=== PATIENT | male | born 1940 | race Caucasian/White ===

== ENCOUNTER 2018-05-06 13:24 | Outpatient (CLI) | payer MEDICARE, BC | END 2018-05-06 13:25 | disposition home or self-care (01) | LOC: ULT 13:24 | PROVIDERS: ATTEND Family Medicine | DX: M31.5 Giant cell arteritis with polymyalgia rheumatica (principal); I08.2 Rheumatic disorders of both aortic and tricuspid valves; R31.29 Other microscopic hematuria; Z79.52 Long term (current) use of systemic steroids | CPT/HCPCS: 81001; 87077; 87086; 87186; 93306 ==

== ENCOUNTER 2018-05-18 08:52 | Outpatient (CLI) | payer MEDICARE, BC ==
--- NOTE | 2018-05-18 12:07 | CT ---
CT ABDOMEN WITH AND WITHOUT CONTRAST CT PELVIS WITH AND WITHOUT CONTRAST: History: Hematuria. Comparison: 10-04-14 Technique: Abdomen and pelvic CT are performed with and without IV contrast. Enteric contrast was not administered. Coronal reformatted images are submitted for interpretation. FINDINGS: ABDOMEN CT: There are coronary calcifications. The heart size is within normal limits. Atherosclerosis of a non-a neurysmal aorta. Chronic changes in the lung bases. No suspicious masses or consolidation. Intra and extra hepatic portal vein is patent. Gallbladder is surgically absent. Liver, spleen, pancr eas, and adrenal glands have appropriate enhancement. Stable hypodensities involving the right renal cortex, too small to characterize but statistically fa vored approximately 1-2 mm in size. d to be cysts. There are bilateral nonobstructing calculi in the left and right intrarenal collecting system measuring 3.9 and 3.8 cm respectively. Additional small o r nonobstructing calculi are noted in the left internal collecting system of approximately 1-2 mm in size. Symmetric enhancement of the kidneys. No evidence of an enhancing mass. There is symmetric excr etion of the contrast into the intrarenal collecting system on the delayed images. The opacified exte rnal collecting systems have an appropriate appearance without a definite filling defect. No gastrohepatic, retrocrural or periportal lymphadenopathy. Evidence of previous abdominal surgery with ventral suture material. No mesenteric mass, lymphadenopathy, free air or free fluid. Limited evaluation of the alimentary canal by the lack of oral contrast. Gastric mucosa, duodenum and multiple normal caliber small bowel loops are noted. Ileocecal junction is normal. Appendix is diffi cult to appreciate. No inflammation of the cecal apex. Scattered fecal material in a nondistended, no ndilated colon. Colonic diverticulosis. No diverticulitis. Limited evaluation of the sigmoid colon mu cosa. Colonoscopy is recommended. PELVIC CT: No pelvic mass, lymphadenopathy, free air or free fluid. Unremarkable urinary bladder. There is a lonnie cification within the wall of the urinary bladder measuring 1-2 mm. No lytic or blastic lesions in the osseous structures. IMPRESSION: 1. No evidence of obstructive uropathy. 2. No evidence of abnormal enhancing mass. 3. Bilateral nonobstructing calculi. 4. Hypodensities in the right kidney are too small to characterize. Small cysts are statistically fav ored. These hypodensities are similar to the previous exam. 5. Diverticulosis without evidence of diverticulitis. 6. Nonspecific calcification in the anterior bladder wall, just to the left of midline. This calcific ation is similar to the exam from 10-19-14. POS: [facility]
[2018-05-18] MEDS ORDERED: ISOVUE-370 76%-LOCM 1 ML ONE (16:06)
== END 2018-05-18 08:53 | disposition home or self-care (01) ==
LOC: CT 08:52 → BICCT 08:53
PROVIDERS: ATTEND Urology
DX: R31.29 Other microscopic hematuria (principal); N28.1 Cyst of kidney, acquired; K57.30 Diverticulosis of large intestine without perforation or abscess without bleeding; N20.0 Calculus of kidney; R93.421 Abnormal radiologic findings on diagnostic imaging of right kidney; N32.89 Other specified disorders of bladder; Z87.440 Personal history of urinary (tract) infections; Z87.442 Personal history of urinary calculi
CPT/HCPCS: 74178

== ENCOUNTER 2019-05-09 10:59 | Outpatient (CLI) | payer MEDICARE, BC ==
--- NOTE | 2019-05-09 13:54 | CT ---
CT ABDOMEN AND PELVIS PERFORMED WITHOUT CONTRAST ENHANCEMENT: Date: 05/09/19 HISTORY: History of kidney stones, having pain and hematuria. Reoccurring UTIs. COMPARISON: 05/18/18 study. FINDINGS: Lung bases show COPD type change. The liver, spleen, and pancreas regions appear unremarkable. The gallbladder has been removed. Punctate bilateral nonobstructing renal calculi are seen. I do not see any signs of any ureteral calc ulus. There is no significant periaortic or mesenteric adenopathy. CT of pelvis was performed with contrast enhancement. There is a moderate amount of stool seen within the sigmoid colon. There is also moderate sigmoid div erticulosis. No adenopathy or mass. There is mild bladder wall thickening demonstrate. A small calcif ication along the anterior bladder wall again noted. IMPRESSION: 1. Bilateral nonobstructing renal calculi. 2. Bladder wall thickening, probably on the basis of bladder outlet obstruction. 3. Sigmoid diverticulosis. POS: [facility]
== END 2019-05-09 11:00 | disposition home or self-care (01) ==
LOC: SCSCT 10:59
PROVIDERS: ATTEND Urology
DX: N20.0 Calculus of kidney (principal); K57.30 Diverticulosis of large intestine without perforation or abscess without bleeding; Z87.440 Personal history of urinary (tract) infections
CPT/HCPCS: 74176

== ENCOUNTER 2021-02-06 13:44 | Inpatient (IN) | payer MEDICARE, BC ==
[2021-02-06 15:18] LABS: #Eosinphils 0.1 thou/uL (0.0-0.7); #Lymphocytes 0.7 thou/uL (1.20-3.40); #Monocytes 0.5 thou/uL (0.11-0.59); #Neutrophils 14.6 thou/uL (1.40-6.50); %Basophils 0.2 % (0.0-1.0); %Eosinophils 0.4 % (0.0-10.0); %Lymphocytes 4.3 % (21.0-51.0); %Monocytes 2.9 % (0.0-10.0); %Neutrophils 92.2 % (42.0-75.0); Hemoglobin 13.5 g/dL (14.0-18.0); Mean Corpuscular HGB CONC 34.3 g/dL (32.0-36.0); Mean Corpuscular Hemoglobin 33.8 pg (27.0-31.0); Mean Corpuscular Volume 98.6 fL (78.0-98.0); Mean Platelet Volume 7.3 fL (7.4-10.4); Platelet Count 290 thou/uL (130-400); RBC Distribution Width 12.9 % (11.5-14.5); Red Blood Cell (RBC) Count 3.98 mill/uL (4.70-6.10); White Blood Cell (WBC) Count 15.8 thou/uL (4.8-10.8)
[2021-02-06 15:38] LABS: ALT (SGPT) 36 U/L (8-55); AST (SGOT) 20 U/L (5-34); Albumin 3.4 g/dL (3.4-4.8); Alkaline Phosphatase 77 U/L (40-110); Anion Gap 15 mmol/L (10-20); BUN (Urea Nitrogen) 42 mg/dL (8.4-25.7); Bilirubin, Total 0.7 mg/dL (0.2-1.2); CK (CPK) 30 U/L (30-200); Calc. Creatinine Clearance 0 mL/min (70-130); Calcium 8.7 mg/dL (7.8-10.44); Carbon Dioxide 24 mmol/L (23-31); Chloride 103 mmol/L (98-107); Globulin 2.3 g/dL (2.4-3.5); Glucose 137 mg/dL (83-110); Lipase 219 U/L (8-78); Protein, Total 5.7 g/dL (5.8-8.1); Sodium 138 mmol/L (136-145)
[2021-02-06] MEDS ORDERED: metroNIDAZOLE 250 MG TAB ONE (16:10)
[2021-02-06] MEDS ORDERED: Vancomycin HCl 25 MG/ML Oral PO SCH (16:45)
[2021-02-06] MEDS ORDERED: Communication Order-Pharmacy FS ONE (19:22)
[2021-02-06 20:27] VITALS: BMI 19.2
[2021-02-06] MEDS: Sodium Chloride 0.9% 1,000 ML IV SCH (22:26)
[2021-02-06] MEDS: Vancomycin HCl 25 MG/ML Oral PO SCH (23:34)
[2021-02-07] MEDS: Sodium Chloride 0.9% 1,000 ML IV SCH ×2 (03:57→15:43)
[2021-02-07 04:53] LABS: #Eosinphils 0.2 thou/uL (0.0-0.7); #Lymphocytes 1.4 thou/uL (1.20-3.40); #Monocytes 0.8 thou/uL (0.11-0.59); #Neutrophils 11.1 thou/uL (1.40-6.50); %Basophils 0.1 % (0.0-1.0); %Eosinophils 1.5 % (0.0-10.0); %Lymphocytes 10.7 % (21.0-51.0); %Monocytes 5.8 % (0.0-10.0); Hemoglobin 12.5 g/dL (14.0-18.0); Mean Corpuscular HGB CONC 35.1 g/dL (32.0-36.0); Mean Corpuscular Hemoglobin 34.9 pg (27.0-31.0); Mean Corpuscular Volume 99.4 fL (78.0-98.0); Mean Platelet Volume 7.4 fL (7.4-10.4); Platelet Count 284 thou/uL (130-400); RBC Distribution Width 12.9 % (11.5-14.5); Red Blood Cell (RBC) Count 3.57 mill/uL (4.70-6.10); White Blood Cell (WBC) Count 13.5 thou/uL (4.8-10.8)
[2021-02-07 05:12] LABS: Anion Gap 11 mmol/L (10-20); BUN (Urea Nitrogen) 35 mg/dL (8.4-25.7); Calc. Creatinine Clearance 52 mL/min (70-130); Calcium 8.3 mg/dL (7.8-10.44); Carbon Dioxide 25 mmol/L (23-31); Chloride 108 mmol/L (98-107); Glucose 94 mg/dL (83-110); Potassium 3.7 mmol/L (3.5-5.1); Sodium 140 mmol/L (136-145)
[2021-02-07] MEDS: Vancomycin HCl 25 MG/ML Oral PO SCH ×4 (05:24→23:51)
[2021-02-07] MEDS: Saccharomyces boulardii 250 MG CAP PO SCH (08:50)
[2021-02-07] MEDS: predniSONE 1 MG TAB PO SCH ×2 (08:50→17:07)
[2021-02-07] MEDS: predniSONE 5 MG TAB PO SCH (08:50)
[2021-02-07] MEDS ORDERED: Enoxaparin Sodium 40 MG/0.4 ML SYRINGE SC SCH (10:00)
[2021-02-07 10:14] LABS: Lactic Acid 1.1 mmol/L (0.5-2.2)
[2021-02-07 11:14] LABS: SARS-CoV-2 PCR by NAA Not Detected (NotDetected)
[2021-02-08] MEDS: Sodium Chloride 0.9% 1,000 ML IV SCH ×3 (00:11→17:48)
[2021-02-08 04:48] LABS: #Basophils 0.1 thou/uL (0.0-0.2); #Eosinphils 0.2 thou/uL (0.0-0.7); #Lymphocytes 1.5 thou/uL (1.20-3.40); #Monocytes 0.6 thou/uL (0.11-0.59); #Neutrophils 9.6 thou/uL (1.40-6.50); %Basophils 0.5 % (0.0-1.0); %Eosinophils 1.6 % (0.0-10.0); %Lymphocytes 12.8 % (21.0-51.0); %Monocytes 4.7 % (0.0-10.0); %Neutrophils 80.4 % (42.0-75.0); Hemoglobin 11.5 g/dL (14.0-18.0); Mean Corpuscular HGB CONC 32.8 g/dL (32.0-36.0); Mean Platelet Volume 7.7 fL (7.4-10.4); Platelet Count 304 thou/uL (130-400); RBC Distribution Width 12.9 % (11.5-14.5); Red Blood Cell (RBC) Count 3.48 mill/uL (4.70-6.10); White Blood Cell (WBC) Count 11.9 thou/uL (4.8-10.8)
[2021-02-08 05:12] LABS: Anion Gap 8 mmol/L (10-20); BUN (Urea Nitrogen) 28 mg/dL (8.4-25.7); Calc. Creatinine Clearance 60 mL/min (70-130); Calcium 8.1 mg/dL (7.8-10.44); Carbon Dioxide 23 mmol/L (23-31); Chloride 113 mmol/L (98-107); Glucose 87 mg/dL (83-110); Potassium 3.4 mmol/L (3.5-5.1); Sodium 141 mmol/L (136-145)
[2021-02-08] MEDS: Vancomycin HCl 25 MG/ML Oral PO SCH ×4 (06:12→23:57)
[2021-02-08] MEDS: Saccharomyces boulardii 250 MG CAP PO SCH (08:29)
[2021-02-08] MEDS: Enoxaparin Sodium 40 MG/0.4 ML SYRINGE SC SCH (08:29)
[2021-02-08] MEDS: predniSONE 1 MG TAB PO SCH ×2 (08:29→17:46)
[2021-02-08] MEDS: predniSONE 5 MG TAB PO SCH (08:29)
[2021-02-08] MEDS ORDERED: Potassium Chloride 20 MEQ TAB PO SCH (09:30)
[2021-02-09] MEDS: Sodium Chloride 0.9% 1,000 ML IV SCH (03:39)
[2021-02-09] MEDS: Vancomycin HCl 25 MG/ML Oral PO SCH ×2 (05:17→11:11)
[2021-02-09] MEDS: Saccharomyces boulardii 250 MG CAP PO SCH (08:50)
[2021-02-09] MEDS: predniSONE 5 MG TAB PO SCH (08:50)
[2021-02-09] MEDS: predniSONE 1 MG TAB PO SCH (08:50)
[2021-02-09] MEDS: Enoxaparin Sodium 40 MG/0.4 ML SYRINGE SC SCH (08:51)
[2021-02-09 09:06] VITALS: BP 110/71; TEMP 97.4
== END 2021-02-09 12:45 | disposition home or self-care (01) | DRG 372 ==
LOC: ERS 13:44 → ERHOLD 16:33 → 2NO 19:40
PROVIDERS: ADMIT Internal Medicine; ATTEND Internal Medicine
DX: A04.72 Enterocolitis due to Clostridium difficile, not specified as recurrent (principal); A43.9 Nocardiosis, unspecified; N17.9 Acute kidney failure, unspecified; I10 Essential (primary) hypertension; C43.9 Malignant melanoma of skin, unspecified; M35.3 Polymyalgia rheumatica; Z20.822 Contact with and (suspected) exposure to COVID-19; I95.9 Hypotension, unspecified; Z88.2 Allergy status to sulfonamides; Z90.49 Acquired absence of other specified parts of digestive tract; Z98.890 Other specified postprocedural states
CPT/HCPCS: 36415; 80048; 80053; 82550; 83605; 83690; 85025; 87324; 87449; 87493; 99285; J1650; J7512; U0003; U0005

== ENCOUNTER 2022-05-25 09:03 | Outpatient (CLI) | payer MEDICARE, BC | END 2022-05-25 09:04 | disposition home or self-care (01) | LOC: BICMAMMO 09:03 | PROVIDERS: ATTEND Family Medicine | DX: M85.88 Other specified disorders of bone density and structure, other site (principal); M81.0 Age-related osteoporosis without current pathological fracture; Z79.52 Long term (current) use of systemic steroids | CPT/HCPCS: 77080 ==

== ENCOUNTER 2024-05-18 14:42 | Outpatient (CLI) | payer MEDICARE, BC | END 2024-05-18 14:43 | disposition home or self-care (01) | LOC: BICMAMMO 14:42 | PROVIDERS: ATTEND Family Medicine | DX: M85.851 Other specified disorders of bone density and structure, right thigh (principal); M85.852 Other specified disorders of bone density and structure, left thigh; Z79.52 Long term (current) use of systemic steroids | CPT/HCPCS: 77080 ==